=== PATIENT | female | born 1955 | race Asian ===

== ENCOUNTER 2019-02-24 11:56 | Emergency (ER) | payer BC ==
[~2019-02-24] VITALS: Ht 152.4 cm; Wt 47.2 kg
[2019-02-24 11:58] VITALS: BP_SYST 137
[2019-02-24] MEDS ORDERED: IBUPROFEN 600 MG TABLET PO ONE (12:30)
[2019-02-24] MEDS ORDERED: traMADol HCL HCL 50 MG TABLET (ULTRAM) PO ONE (13:30)
[2019-02-24] MEDS ORDERED: CYCLOBENZAPRINE HCL 10 MG TABLET (FLEXERIL) PO ONE (13:30)
[2019-02-24 13:47] VITALS: BP_SYST 137
== END 2019-02-24 13:47 | disposition home or self-care (01) ==
LOC: SED 11:56
DX: S22.019A Unspecified fracture of first thoracic vertebra, initial encounter for closed fracture (principal); S16.1XXA Strain of muscle, fascia and tendon at neck level, initial encounter; V47.5XXA Car driver injured in collision with fixed or stationary object in traffic accident, initial encounter; Y93.89 Activity, other specified; Y92.89 Other specified places as the place of occurrence of the external cause; Y99.8 Other external cause status
CPT/HCPCS: 70450-TC; 72125-TC; 99284